=== PATIENT | male | born 1940 | race Caucasian/White ===

== ENCOUNTER 2018-10-13 14:20 | Emergency (ER) | payer BC, SELFPAY ==
[2018-10-13 14:32] VITALS: BP 162/74; PULSE 71; RESP 14; TEMP 36.6; O2SAT 95
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
[2018-10-13] MEDS: Cephalexin 500 MG CAP PO ×2 (18:17→18:18)
== END 2018-10-13 18:19 | disposition home or self-care (01) ==
PROVIDERS: Emergency Provider Student in an Organized Health Care Education/Training Program
DX: S01.01XA Laceration without foreign body of scalp, initial encounter (principal); S09.90XA Unspecified injury of head, initial encounter; S01.81XA Laceration without foreign body of other part of head, initial encounter; V18.0XXA Pedal cycle driver injured in noncollision transport accident in nontraffic accident, initial encounter; Y93.55 Activity, bike riding
CPT/HCPCS: 12004; 99284; 70450; 99281